=== PATIENT | female | born 1955 | race Two or more races ===

== ENCOUNTER 2024-07-06 13:04 | Emergency (ER) | payer OTHER ==
[~2024-07-06] VITALS: Ht 157.5 cm; Wt 90.7 kg
[2024-07-06] MEDS ORDERED: DEXAMETHASONE SODIUM PHOSPHATE 4 MG/ML VIAL IM STA (14:28)
[2024-07-06] MEDS ORDERED: ORPHENADRINE CITRATE 30 MG/ML AMPUL IM STA (14:28)
[2024-07-06] MEDS ORDERED: DEXAMETHASONE SODIUM PHOSPHATE 4 MG/ML VIAL ONE (14:32)
[2024-07-06] MEDS ORDERED: ORPHENADRINE CITRATE 30 MG/ML AMPUL ONE (14:32)
[2024-07-06 14:57] LABS: HEMATOCRIT 45.1 % (36.0-45.00); HEMOGLOBIN 15.4 g/dL (12.0-15.00); MEAN CELL VOLUME 97.8 fL (80.00-100.00); MEAN CORPUSCULAR HEMOGLOBIN 33.4 pg (27.00-32.0); MEAN CORPUSCULAR HGB CONC 34.1 g/dl (32.0-36.0); PLATELET COUNT 199 K/uL (150-450); RED BLOOD COUNT 4.61 M/uL (4.00-6.00); RED CELL DISTRIBUTION WIDTH 13.7 % (11.5-14.5)
[2024-07-06] MEDS ORDERED: VITAMIN D-40010 MCG PO (16:53)
== END 2024-07-06 17:17 | disposition home or self-care (01) ==
LOC: ER 13:06
DX: M54.9 Dorsalgia, unspecified (principal); Z88.8 Allergy status to other drugs, medicaments and biological substances
CPT/HCPCS: 36415; 72100; 73521; 96372; 99283; J1100; J2360